=== PATIENT | male | born 1990 | race Two or more races ===

== ENCOUNTER 2025-01-25 13:10 | Emergency (ER) | payer MEDICAID, OTHER ==
[~2025-01-25] VITALS: Ht 175.3 cm; Wt 80.3 kg
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
[2025-01-25 16:13] VITALS: BP 128/85; PULSE 65; RESP 18; TEMP 98.3; O2SAT 95
[2025-01-25] MEDS: SODIUM CHLORIDE 0.9% 1,000 ML IV ONE (17:25)
[2025-01-25] MEDS: METHADONE HCL 10 MG TAB PO ONE (18:08)
== END 2025-01-25 19:48 | disposition left against medical advice (07) ==
LOC: ER 13:10
DX: F11.23 Opioid dependence with withdrawal (principal)
CPT/HCPCS: 96360; 99283; J7030

== ENCOUNTER 2025-01-26 07:27 | Emergency (ER) | payer MEDICAID ==
[~2025-01-26] VITALS: Ht 175.3 cm; Wt 79.7 kg
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
[2025-01-26 10:52] VITALS: BP 142/89; PULSE 65; RESP 16; TEMP 98; O2SAT 96
[2025-01-26] MEDS: METHADONE HCL 10 MG TAB PO ONE (11:00)
[2025-01-26] MEDS ORDERED: METHADONE HCL 10 MG TAB ONE (11:01)
== END 2025-01-26 11:01 | disposition home or self-care (01) ==
LOC: ER 07:27
DX: F11.23 Opioid dependence with withdrawal (principal)